=== PATIENT | female | born 1975 | race Caucasian/White ===

== ENCOUNTER 2020-11-19 12:01 | Emergency (ER) | payer OTHER, SELFPAY ==
[2020-11-19 12:02] VITALS: BP 134/81; PULSE 105; RESP 16; TEMP 36.7; O2SAT 99; BMI 25.7
[2020-11-19 13:21] VITALS: RESP 14
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
--- NOTE | 2020-11-19 13:42 | RAD_ITS ---
STUDY: X-RAY - LEFT FOOT CLINICAL: Female, 45 years old. great toe pain TECHNIQUE: 3 view(s) of the foot. COMPARISON: None. FINDINGS: There is an undisplaced fracture involving the tuft of the distal phalanx of the big toe. Otherwise no evidence of osseous or articular abnormality. No soft tissue swelling RAD/Foot min 3 Views IMPRESSION: Undisplaced fracture tuft of the distal phalanx of the big toe. Electronically Signed: Kemal Abdalla, at 14:19 EDT Tel , Service support ,
[2020-11-19] MEDS: Ibuprofen 600 MG Tablet PO (14:03)
[2020-11-19] MEDS: Diphth,Pertuss(Acell),Tet Vac 0.5 ML Vial IM (14:03)
[2020-11-19] MEDS: Lidocaine 2% (20 ml mdv) 20 ML Vial INFILT (15:07)
[2020-11-19 15:28] VITALS: RESP 12
[2020-11-19] MEDS: Amox/Clavulanate 875 MG Tablet PO (15:48)
== END 2020-11-19 16:05 | disposition home or self-care (01) ==
PROVIDERS: Emergency Provider Student in an Organized Health Care Education/Training Program
DX: S92.425B Nondisplaced fracture of distal phalanx of left great toe, initial encounter for open fracture (principal); V03.90XA Pedestrian on foot injured in collision with car, pick-up truck or van, unspecified whether traffic or nontraffic accident, initial encounter; Y93.01 Activity, walking, marching and hiking; Y92.410 Unspecified street and highway as the place of occurrence of the external cause; Y99.9 Unspecified external cause status; S50.311A Abrasion of right elbow, initial encounter; M25.551 Pain in right hip; Z23 Encounter for immunization
CPT/HCPCS: 11750; 73630; 90715; 99285